=== PATIENT | female | born 1945 | race Caucasian/White ===

== ENCOUNTER 2022-01-16 08:23 | Day surgery (SDC) | payer MEDICARE ==
[~2022-01-16] VITALS: Ht 152.4 cm; Wt 71.6 kg
[~2022-01-16 08:23] MED LIST: CETI5 PO; DELTASONE20 MG PO; INSLIS75I; LORA.5 PO; NAPR220 PO; Norco 5-325 Ta1 EACH PO; ROSU10TA PO; TAMS.4ER PO; TELM40 PO; Ventolin/Prove6.7 GM INH
[2022-01-16] MEDS ORDERED: NAPR220 PO (08:53)
[2022-01-16] MEDS ORDERED: CLEM1.34 (08:53)
[2022-01-16] MEDS ORDERED: PSEU120ER (08:53)
== END 2022-01-16 10:13 | disposition home or self-care (01) ==
LOC: ORSCSDS 08:23
PROVIDERS: Student in an Organized Health Care Education/Training Program
PROC: 08DK3ZZ Extraction of Left Lens, Percutaneous Approach (ICD-10-PCS; principal; 2022-01-16 09:45)
DX: H25.13 Age-related nuclear cataract, bilateral (principal); H35.3131 Nonexudative age-related macular degeneration, bilateral, early dry stage; J44.9 Chronic obstructive pulmonary disease, unspecified; I10 Essential (primary) hypertension; E66.9 Obesity, unspecified; Z68.30 Body mass index [BMI] 30.0-30.9, adult; Z87.891 Personal history of nicotine dependence
CPT/HCPCS: J2001; J2250; J3010; J7040; V2632

== ENCOUNTER 2022-01-30 09:52 | Day surgery (SDC) | payer MEDICARE ==
[~2022-01-30] VITALS: Ht 152.4 cm; Wt 71.5 kg
[~2022-01-30 09:52] MED LIST changes: +CLEM1.34; +PSEU120ER
[2022-01-30] MEDS ORDERED: ZYRTEC10 M2 PO (10:18)
--- NOTE | 2022-01-30 11:40 | NUR ---
01/30/22 1140 Lidia Barbour OD PAIN IS STINGING SENSATION ONLY WILL TAKE MED IF NEEDED WHEN GETS HOME.
== END 2022-01-30 11:51 | disposition home or self-care (01) ==
LOC: ORSCSDS 09:52
PROVIDERS: Student in an Organized Health Care Education/Training Program
PROC: 08RJ3JZ Replacement of Right Lens with Synthetic Substitute, Percutaneous Approach (ICD-10-PCS; principal; 2022-01-30 11:15)
DX: H25.11 Age-related nuclear cataract, right eye (principal); I10 Essential (primary) hypertension; J44.9 Chronic obstructive pulmonary disease, unspecified; E78.00 Pure hypercholesterolemia, unspecified; Z79.899 Other long term (current) drug therapy
CPT/HCPCS: J2001; J2250; J7040; V2632